=== PATIENT | female | born 1995 | race American Indian/Alaskan Native ===

== ENCOUNTER 2016-11-15 03:10 | Emergency (ER) | payer SELFPAY ==
--- NOTE | 2016-11-15 04:59 | C.PDOC ---
History Of Present Illness 20 year old female presents to the ED for alcohol intoxication but left before being seen. Patient came to ED with three friends and arranged to go home with them and did not want medical treatment. Time Seen by Provider: 11/15/16 03:42 Chief Complaint (Nursing): Substance Abuse Past Medical History Family History: States: Unknown Family Hx Disposition - Disposition Disposition: LEFT W/O BEING SEEN - ER ONLY Disposition Time: 00:00 Condition: UNKNOWN - Clinical Impression Clinical Impression: Patient refused evaluation or treatment - Scribe Statement The provider has reviewed the documentation as recorded by the Scribe Eloisa Kwon All medical record entries made by the Leslieibjuvenal were at my direction and personally dictated by me. I have reviewed the chart and agree that the record accurately reflects my personal performance of the history, physical exam, medical decision making, and the department course for this patient. I have also personally directed, reviewed, and agree with the discharge instructions and disposition.
== END 2016-11-15 03:57 | disposition left against medical advice (07) ==
LOC: C.ER 03:10
DX: Z02.89 Encounter for other administrative examinations (principal); F10.10 Alcohol abuse, uncomplicated